=== PATIENT | female | born 1960 | race Caucasian/White ===

== ENCOUNTER 2017-07-06 11:32 | Inpatient (IN) | payer OTHER ==
[~2017-07-06] VITALS: Ht 165.1 cm; Wt 86.2 kg
[2017-07-06 12:57] LABS: INR 0.94 (0.9-1.15); Partial Thromboplastin Time 28.6 sec (22.64-33.71); Prothrombin Time 10.2 sec (9.37-12.3)
[2017-07-06 12:59] LABS: Basophils # (auto) 0 uL; Basophils % (auto) 0.9 % (0.0-2.0); Eosinophils # (auto) 0 uL; Eosinophils % (auto) 1.2 % (0.0-7.0); Hematocrit 43.4 % (36.0-46.0); Hemoglobin 14.3 g/dL (12.2-16.2); Lymphocytes # (auto) 0.5 uL; Lymphocytes % (auto) 12.8 % (10.0-50.0); Mean Corpuscular Hemoglobin 31.3 pg (28.0-32.0); Mean Corpuscular Volume 94.6 fL (80.0-100.0); Monocytes # (auto) 0.2 uL; Monocytes % (auto) 5.4 % (0.0-12.0); Neutrophils # (auto) 3.4 uL; Neutrophils % (auto) 79.7 % (37.0-80.0); Nucleated Red Blood Cells % 0.2 %; Platelet Count (auto) 263 10^3/uL (140-450); Red Blood Cells 4.59 10^6/uL (4.0-5.20); Red Cell Distribution Width 13.2 % (11.8-14.3); White Blood Cell 4.2 10^3/uL (4.4-10.8)
[2017-07-06 13:25] LABS: Potassium 3.6 mmol/L (3.5-5.1)
[2017-07-06 13:26] LABS: Albumin 3.7 g/dL (3.4-5.0); BUN/Creatinine Ratio 11.9; Bilirubin, Total 0.6 mg/dL (0.2-1.0); Calcium 8.8 mg/dL (8.5-10.1); Total Protein 6.9 g/dL (6.4-8.2)
[2017-07-06 13:27] LABS: Magnesium 2.2 mg/dL (1.6-2.6)
[2017-07-06] MEDS ORDERED: ASPirin-EC 81 mg tab PO ONE (17:00)
[2017-07-06] MEDS ORDERED: LORazepam 0.5 MG TAB PO PRN (17:15)
[2017-07-06] MEDS ORDERED: NITROGLYCERIN 0.4 MG SL TAB SL PRN (17:15)
[2017-07-06] MEDS ORDERED: ACETAMINOPHEN 500 MG TAB PO PRN (17:15)
[2017-07-06] MEDS ORDERED: LACTULOSE 20Gm/30ML SOLN PO PRN (17:15)
[2017-07-06] MEDS ORDERED: HYDROcodone-ACET 5/325MG TAB PO PRN (17:15)
[2017-07-06] MEDS ORDERED: MORPHINE SULFATE 4 MG/ML SYR/VIAL IV PRN ×2 (17:15)
[2017-07-06] MEDS ORDERED: TEMAZEPAM 15 MG CAP PO PRN (17:15)
[2017-07-06] MEDS ORDERED: NITROGLYCERIN 0.2MG/HR TOPICAL PATCH TD ONE (17:30)
[2017-07-06] MEDS ORDERED: PANTOPRAZOLE 40 MG TAB PO ONE (17:30)
[2017-07-06] MEDS: ENOXAPARIN SOD 80 MG/0.8ML SYRINGE SC SCH (17:40)
[2017-07-06] MEDS: SODIUM CHLORIDE 0.9% 1,000 ML IV SCH (17:40)
[2017-07-06 21:16] LABS: Amphetamine Screen, Urine NEGATIVE (NEGATIVE); Barbiturate Scree,Urine NEGATIVE (NEGATIVE); Benzodiazephine Screen, Urine NEGATIVE (NEGATIVE); Cannabinoid Screen, Urine NEGATIVE (NEGATIVE); Cocaine Screen, Urine NEGATIVE (NEGATIVE); Opiate Scree,Urine NEGATIVE (NEGATIVE); Phencyclidine Screen, Urine NEGATIVE (NEGATIVE)
[2017-07-06 21:21] LABS: Alcohol, Urine < 3.0 mg/dL (0-5)
[2017-07-06] MEDS: METOPROLOL TARTRATE 25 MG TAB PO SCH (21:31)
[2017-07-06] MEDS ORDERED: ENOXAPARIN SOD 80 MG/0.8ML SYRINGE SC SCH (22:00)
[2017-07-06] MEDS ORDERED: ATORVASTATIN 20 MG TAB PO SCH (22:00)
[2017-07-06 22:43] LABS: Cholesterol 221 mg/dL (< 200); HDL Cholesterol 57 mg/dL (40-59); LDL Cholesterol 152 mg/dL (< 100); Triglycerides 139 mg/dL (< 150)
[2017-07-07] MEDS: PROMETHAZINE HCL 25 MG/ML 1ML IV PRN ×2 (02:01→09:35)
[2017-07-07 03:42] LABS: Basophils # (auto) 0.1 uL; Basophils % (auto) 1.4 % (0.0-2.0); Eosinophils # (auto) 0 uL; Eosinophils % (auto) 0.7 % (0.0-7.0); Hematocrit 38.8 % (36.0-46.0); Hemoglobin 13.1 g/dL (12.2-16.2); Mean Corpuscular Hemoglobin 31.1 pg (28.0-32.0); Mean Corpuscular Hgb Conc. 33.9 g/dL (32.0-36.0); Mean Corpuscular Volume 91.7 fL (80.0-100.0); Monocytes # (auto) 0.2 uL; Monocytes % (auto) 4.1 % (0.0-12.0); Neutrophils # (auto) 4.1 uL; Neutrophils % (auto) 74.8 % (37.0-80.0); Platelet Count (auto) 261 10^3/uL (140-450); Red Blood Cells 4.23 10^6/uL (4.0-5.20); Red Cell Distribution Width 13.1 % (11.8-14.3); White Blood Cell 5.4 10^3/uL (4.4-10.8)
[2017-07-07 04:54] LABS: Cholesterol 215 mg/dL (< 200); HDL Cholesterol 54 mg/dL (40-59); LDL Cholesterol 144 mg/dL (< 100); Triglycerides 152 mg/dL (< 150)
[2017-07-07] MEDS: SODIUM CHLORIDE 0.9% 1,000 ML IV SCH (05:53)
[2017-07-07] MEDS: ENOXAPARIN SOD 80 MG/0.8ML SYRINGE SC SCH (05:55)
[2017-07-07] MEDS ORDERED: SODIUM CHLORIDE 0.9% 1,000 ML IV SCH (08:30)
[2017-07-07] MEDS ORDERED: ASPirin 81 mg TAB PO SCH (10:00)
[2017-07-07] MEDS ORDERED: NITROGLYCERIN 0.2MG/HR TOPICAL PATCH TD SCH (10:00)
[2017-07-07] MEDS ORDERED: PANTOPRAZOLE 40 MG TAB PO SCH (10:00)
[2017-07-07] MEDS ORDERED: DEXAMETHASONE INJECTION 10 MG in D5W 5% 50 ML IV SCH (10:00)
[2017-07-07] MEDS: METOPROLOL TARTRATE 25 MG TAB PO SCH (10:53)
[2017-07-07] MEDS ORDERED: METOCLOPRAMIDE HCL 10 MG TAB PO SCH (14:00)
[2017-07-07 17:38] VITALS: BP 116/66
[2017-07-07] MEDS ORDERED: ATORVASTATIN 20 MG TAB PO SCH (22:00)
== END 2017-07-07 17:49 | disposition short-term general hospital (02) | DRG 64 ==
LOC: EDBD 11:32 → ER 11:32 → OVERFLOW 11:33
PROVIDERS: ADMIT Internal Medicine; ATTEND Internal Medicine
DX: I63.9 Cerebral infarction, unspecified (principal); I82.0 Budd-Chiari syndrome; I47.1 Supraventricular tachycardia; G81.91 Hemiplegia, unspecified affecting right dominant side; G43.109 Migraine with aura, not intractable, without status migrainosus; K59.00 Constipation, unspecified; F41.9 Anxiety disorder, unspecified; R74.8 Abnormal levels of other serum enzymes; E78.00 Pure hypercholesterolemia, unspecified; G47.00 Insomnia, unspecified; I25.10 Atherosclerotic heart disease of native coronary artery without angina pectoris; E78.5 Hyperlipidemia, unspecified; Z79.82 Long term (current) use of aspirin; Z82.49 Family history of ischemic heart disease and other diseases of the circulatory system; Z86.718 Personal history of other venous thrombosis and embolism; Z88.1 Allergy status to other antibiotic agents; Z88.8 Allergy status to other drugs, medicaments and biological substances
CPT/HCPCS: 36415; 70450; 71045; 80053; 80061; 80307; 82550; 83735; 83880; 84443; 84484; 85025; 85379; 85610; 85652; 85730; 86141; 93005; 96361; 96374; 99291; G0378; J1100; J7060